=== PATIENT | female | born 2000 | race Caucasian/White ===

== ENCOUNTER 2020-10-20 01:10 | Emergency (ER) | payer BC, MEDICAID ==
[~2020-10-20] VITALS: Ht 162.5 cm; Wt 76.1 kg
[2020-10-20 01:18] VITALS: BP 137/60
--- NOTE | 2020-10-20 01:37 | ED General ---
General Chief Complaint: Allergic Reaction Stated Complaint: SOA,SHAKING Nursing Triage Note: Pt in per POV with complaint of allergic reaction to having her lash extentions done. Reports they used a sensitive glue this time, but it did not work. States she got SOB and jittery. No OTC meds. Nursing Sepsis Screen: No Definite Risk Source of Information: Patient Exam Limitations: No Limitations History of Present Illness Date Seen by Provider: October 20, 2020 Time Seen by Provider: 01:20 Initial Comments Patient is a 20-year-old female who presents to the emergency department today with a chief complaint of feeling anxious, shortness of breath, red itchy watery eyes after getting her eyelash extensions done this evening. Patient states this happens every time she gets her lash extensions done. She has been having them done since June. She states she tried Benadryl one time after this but it did not seem to help. She states the next day she typically has a severe headache. She has no other complaints of rash, swelling, difficulty swallowing. No other complaints of recent illness or injury. All other review of systems reviewed and negative except as stated above. Timing/Duration: 1-3 Hours Severity: Moderate Associated Systoms: Shortness of Air, Other (red itchy eyes) Allergies and Home Medications Allergies Coded Allergies: codeine (Verified Allergy, Unknown, hives, 10/20/20) Patient Home Medication List Home Medication List Reviewed: Yes Review of Systems Review of Systems Constitutional: see HPI EENTM: eye pain, tearing, nose congestion; No mouth swelling, No throat swelli ng Respiratory: short of breath Cardiovascular: no symptoms reported Gastrointestinal: no symptoms reported Genitourinary: no symptoms reported Musculoskeletal: no symptoms reported Skin: no symptoms reported Psychiatric/Neurological: Anxiety All Other Systems Reviewed Negative Unless Noted: Yes Past [id number] Hx Patient Social History Alcohol Use: Denies Use Smoking Status: Never a Smoker 2nd Hand Smoke Exposure: No Recent Infectious Disease Expo: No Recent Hopitalizations: No Seasonal Allergies Seasonal Allergies: Yes Past Medical History Surgeries: No Respiratory: No Cardiac: No Neurological: No : No Genitourinary: No Gastrointestinal: No Musculoskeletal: No Endocrine: No HEENT: No Cancer: No Psychosocial: No Integumentary: No Blood Disorders: No Physical Exam Vital Signs Vital Signs - First Documented 10/20/20 01:18 Temp 36.8 Pulse 117 Resp 20 B/P (MAP) 137/60 (85) O2 Delivery Room Air Capillary Refill : Less Than 3 Seconds Height, Weight, BMI Height: '" Weight: lbs. oz. kg; 28.00 BMI Method: General Appearance: WD/WN, Anxious Eyes: Bilateral Eye Lid Inflammation, Bilateral Eye Other (lid inflammation and conjunctival injections bilaterally) HEENT: PERRL/EOMI Neck: Normal Inspection, Supple Respiratory: Lungs Clear, Normal Breath Sounds, No Accessory Muscle Use, No Respiratory Distress Cardiovascular: Regular Rate, Rhythm Extremity: Normal Inspection, Normal Range of Motion Neurologic/Psychiatric: Alert, Oriented x3, No Motor/Sensory Deficits, Other (anxious and tearful) Skin: Normal Color, Warm/Dry Progress/Results/Core Measures Suspected Sepsis Recent Fever Within 48 Hours: No Infection Criteria Present: Suspected New Infection New/Unexplained Altered Menta: No Sepsis Screen: No Definite Risk SIRS Temperature: Pulse: 117 Respiratory Rate: 20 Blood Pressure 137 /60 Mean: 85 Results/Orders My Orders Orders - FREDA HAMILTON MD Diphenhydramine Tablet (Benadryl Tablet) (10/20/20 01:45) Vital Signs/I&O 10/20/20 01:18 Temp 36.8 Pulse 117 Resp 20 B/P (MAP) 137/60 (85) O2 Delivery Room Air Capillary Refill : Less Than 3 Seconds Blood Pressure Mean: 85 Departure Impression Primary Impression: Allergic reaction Qualified Codes: T78.40XA - Allergy, unspecified, initial encounter Disposition: HOME, SELF-CARE Condition: Stable Departure-Patient Inst. Decision time for Depature: 01:35 Referrals: LIZZETTE CASAS MD (PCP/Family) Primary Care Physician Patient Instructions: Allergic Reaction ED Add. Discharge Instructions: Take benadryl 1-2 tablets every 6 hours as needed for itchy, red eyes and the feeling of shortness of breath. Avoid getting eyelash extensions done again. If your symptoms worsen, please come back tp the emergency room for re- evaluation. FREDA HAMILTON MD October 20, 2020 01:37
[2020-10-20] MEDS: diphenhydrAMINE 25 MG TAB (BENADRYL) PO ONE (01:40)
== END 2020-10-20 01:46 | disposition home or self-care (01) ==
LOC: ER FS 01:12
DX: T78.40XA Allergy, unspecified, initial encounter (principal)
CPT/HCPCS: 99283